=== PATIENT | female | born 1935 | race Caucasian/White ===

== ENCOUNTER 2019-01-23 16:21 | Emergency (ER) | payer MEDICARE, BC ==
[2019-01-23] MEDS ORDERED: OXYCODONE-ACETAMINOPHEN 5-325 MG TABLET PO ONE ×2 (17:31→20:57)
--- NOTE | 2019-01-23 17:31 | ER Document Report ---
ED Medical Screen (RME) - General Chief Complaint: Fall Stated Complaint: FALL Time Seen by Provider: 01/23/19 17:18 Primary Care Provider: TRINO TAMAYO MD [Primary Care Provider] - Follow up as needed Notes: Patient is a 83-year-old female that presents to the emergency department for chief complaint of right ankle pain and bilateral knee pain after a fall this morning. ROS: Other than noted above, the 12 point review of systems was reviewed with the patient and were negative, all pertinent findings are included in the HPI. PHYSICAL EXAMINATION: Vital signs reviewed. GENERAL: Elderly female, appears uncomfortable HEAD: Atraumatic, normocephalic. EYES: Pupils equal round extraocular movements intact, conjunctiva are normal. ENT: Nares patent NECK: Normal range of motion CV: Heart regular rate and rhythm LUNGS: No respiratory distress Musculoskeletal: Good range of motion of both knees, some tenderness to palpation along the joint lines, bilaterally, the right ankle appears to be petrona matous, and tender to palpate medially and laterally. NEUROLOGICAL: Normal speech PSYCH: Normal mood, normal affect. MDM: Patient seen and examined for rapid initial assessment. Vital signs reviewed. A comprehensive ED assessment and evaluation of the patient, analysis of test results and completion of the medical decision making process will be conducted by additional ED providers. *Note is created using voice recognition software and may contain spelling, syntax or grammatical errors. TRAVEL OUTSIDE OF THE [place] IN LAST 30 DAYS: No - Related Data Allergies/Adverse Reactions: No Known Allergies Allergy (Verified 01/23/19 17:24) Past Medical History - Social History Chew tobacco use (# tins/day): No Frequency of alcohol use: None Drug Abuse: None Pulmonary Medical History: Reports: Hx COPD Renal/ Medical History: Denies: Hx Peritoneal Dialysis Past Surgical History: Reports: Hx Section, Hx Orthopedic Surgery - femur repair Physical Exam - Vital signs Vitals: Temp Pulse Resp BP Pulse Ox 98.1 F 80 20 176/94 H 94 01/23/19 16:34 01/23/19 16:34 01/23/19 16:34 01/23/19 16:34 01/23/19 16:34 Course - Vital Signs Vital signs: Temp Pulse Resp BP Pulse Ox 98.1 F 80 20 176/94 H 94 01/23/19 16:34 01/23/19 16:34 01/23/19 16:34 01/23/19 16:34 01/23/19 16:34 Doctor's Discharge - Discharge Referrals: TRINO TAMAYO MD [Primary Care Provider] - Follow up as needed
--- NOTE | 2019-01-23 18:25 | RADIOLOGY REPORT (SQ) ---
EXAM DESCRIPTION: ANKLE RIGHT COMPLETE COMPLETED DATE/TIME: 01/23/2019 6:12 pm REASON FOR STUDY: right ankle pain , fall COMPARISON: None. NUMBER OF VIEWS: Three views. TECHNIQUE: AP, lateral, and oblique radiographic images acquired of the right ankle. LIMITATIONS: None. FINDINGS: MINERALIZATION: Normal. BONES: No acute fracture or dislocation. No worrisome bone lesions. JOINTS: Possible effusion. SOFT TISSUES: Mild soft tissue swelling. No foreign body. OTHER: No other significant finding. IMPRESSION: MILD SOFT TISSUE SWELLING. POSSIBLE JOINT EFFUSION. NO ACUTE BONY FINDINGS. TECHNICAL DOCUMENTATION: JOB ID: [id number] [employer]- All Rights Reserved Reading location - IP/workstation name: [email or web address]
--- NOTE | 2019-01-23 18:26 | RADIOLOGY REPORT (SQ) ---
EXAM DESCRIPTION: KNEE LEFT 3 VIEWS COMPLETED DATE/TIME: 01/23/2019 6:12 pm REASON FOR STUDY: left knee pain, fall COMPARISON: None. NUMBER OF VIEWS: Three views. TECHNIQUE: AP, lateral, and sunrise patella radiographic images acquired of the left knee. LIMITATIONS: None. FINDINGS: MINERALIZATION: Normal. BONES: No acute fracture or dislocation. No worrisome bone lesions. Hardware in the femur. JOINT: Small suprapatellar effusion. SOFT TISSUES: No soft tissue swelling. No radio-opaque foreign body. OTHER: No other significant finding. IMPRESSION: SMALL JOINT EFFUSION. NO ACUTE BONY FINDINGS. TECHNICAL DOCUMENTATION: JOB ID: [id number] [employer]- All Rights Reserved Reading location - IP/workstation name: [email or web address]
--- NOTE | 2019-01-23 18:26 | RADIOLOGY REPORT (SQ) ---
EXAM DESCRIPTION: KNEE RIGHT 3 VIEWS COMPLETED DATE/TIME: 01/23/2019 6:12 pm REASON FOR STUDY: right knee pain, injury COMPARISON: None. NUMBER OF VIEWS: Three views. TECHNIQUE: AP, lateral, and sunrise patella radiographic images acquired of the right knee. LIMITATIONS: None. FINDINGS: MINERALIZATION: Normal. BONES: No acute fracture or dislocation. No worrisome bone lesions. JOINT: No effusion. SOFT TISSUES: No soft tissue swelling. No radio-opaque foreign body. OTHER: No other significant finding. IMPRESSION: NEGATIVE STUDY OF THE RIGHT KNEE. NO RADIOGRAPHIC EVIDENCE OF ACUTE INJURY. TECHNICAL DOCUMENTATION: JOB ID: [id number] [employer]- All Rights Reserved Reading location - IP/workstation name: [email or web address]
--- NOTE | 2019-01-23 20:37 | ER Document Report ---
ED Fall - General Chief Complaint: Fall Stated Complaint: FALL Time Seen by Provider: 01/23/19 17:18 Primary Care Provider: JUICE AGUAYO MD [ACTIVE STAFF] - Follow up in 3-5 days Notes: Patient is an 83-year-old female that comes to the emergency department for chief complaint of fall. She states she tripped over her flip-flops, fell forward, landed on her knees. Denies hand, wrist, arm, head, chest, back, abdominal injury. She denies focal numbness or weakness. She has a bruise over her left knee, pain and swelling to her right ankle, some tenderness over the right knee. She states that she was she was getting up and walking, however the pain worsened and she was having difficulty walking, therefore she came in by ambulance. She takes tramadol as needed for pain, has a history of a fractured left femur with ORIF. She was given Percocet in triage, states she used to take this after her femur fracture, states it helped a lot. She does have a small bleeding area underneath her right great toe, her tetanus is up-to-date, denies diabetes or blood thinner, denies current bleeding. Denies any other complaints. TRAVEL OUTSIDE OF THE [place] IN LAST 30 DAYS: No - Related data Allergies/Adverse Reactions: No Known Allergies Allergy (Verified 01/23/19 17:24) Past Medical History - General Information source: Patient - Social History Smoking Status: Current Every Day Smoker Chew tobacco use (# tins/day): No Frequency of alcohol use: None Drug Abuse: None Lives with: Family Family History: Reviewed & Not Pertinent Patient has suicidal ideation: No Patient has homicidal ideation: No Pulmonary Medical History: Reports: Hx COPD Renal/ Medical History: Denies: Hx Peritoneal Dialysis Past Surgical History: Reports: Hx Section, Hx Orthopedic Surgery - femur repair Review of Systems - Review of Systems Constitutional: No symptoms reported EENT: No symptoms reported Cardiovascular: No symptoms reported Respiratory: No symptoms reported Gastrointestinal: No symptoms reported Genitourinary: No symptoms reported Female Genitourinary: No symptoms reported Musculoskeletal: See HPI Skin: No symptoms reported Hematologic/Lymphatic: No symptoms reported Neurological/Psychological: No symptoms reported Physical Exam - Vital signs Vitals: Temp Pulse Resp BP Pulse Ox 98.1 F 80 20 176/94 H 94 01/23/19 16:34 01/23/19 16:34 01/23/19 16:34 01/23/19 16:34 01/23/19 16:34 - Notes Notes: GENERAL: Alert, interacts well. No acute distress. HEAD: Normocephalic, atraumatic. EYES: Pupils equal, round, and reactive to light. Extraocular movements intact. ENT: Oral mucosa moist, tongue midline. Oropharynx unremarkable. Airway patent. Nares patent, no nasal septal hematoma, TM's intact. NECK: Full range of motion. Supple. Trachea midline. LUNGS: Clear to auscultation bilaterally, no wheezes, rales, or rhonchi. No respiratory distress. HEART: Regular rate and rhythm. No murmur ABDOMEN: Soft, non-tender. Non-distended. Bowel sounds present in all 4 quadrants. GENITOURINARY: Deferred EXTREMITIES: Contusion over the left knee, questionable mild soft tissue swelling of the left knee, right knee is unremarkable. Normal range of motion of both. Normal hip exams. Right ankle with some tenderness over the anterior aspect of the foot and over the right lateral malleolus. Otherwise unremarkable. Normal distal neurovascular exam. BACK: no cervical, thoracic, lumbar midline tenderness. No saddle anesthesia, normal distal neurovascular exam. NEUROLOGICAL: Alert and oriented x3. Normal speech. [cranial nerves II through XII grossly intact]. PSYCH: Normal affect, normal mood. SKIN: Small skin tear underneath right great toe, otherwise unremarkable Course - Re-evaluation Re-evalutation: Patient with contusion to the left knee, some pain, however range of motion is intact, no severe swelling, patient can place weight on it but with some pain. She also has some evidence of soft tissue swelling of the right ankle. Effusions in both. Right knee unremarkable. No fractures on x-rays. No concerning findings on exam. There is a small skin tear on the right toe but no significant wounds. Area was cleaned and dressed. Discussed with patient. She states she is comfortable going home, she has a walker, she states she needs pain medication in order to be able to walk but she was provided with this and was doing quite well. Discussed use, precautions, follow-up, and return precautions with patient and significant other at bedside in detail. They state understanding and agreement with plan. Stable at time of discharge. - Vital Signs Vital signs: Temp Pulse Resp BP Pulse Ox 98.2 F 81 17 164/95 H 97 01/23/19 21:05 01/23/19 21:05 01/23/19 21:05 01/23/19 21:05 01/23/19 21:05 Procedures - Immobilization right ankle Pre-Proc Neuro Vasc Exam: Normal Immobilizer type: Rafat wrap, Ankle stirrup Performed by: PCT Post-Proc Neuro Vasc Exam: Normal Alignment checked and good: Yes Discharge - Discharge Clinical Impression: Right ankle swelling, Skin tear Accidental fall Qualifiers: Encounter type: initial encounter Qualified Code(s): W19.XXXA - Unspecified fall, initial encounter Contusion of left knee Qualifiers: Encounter type: initial encounter Qualified Code(s): S80.02XA - Contusion of left knee, initial encounter Condition: Stable Disposition: HOME, SELF-CARE Additional Instructions: The x-rays do not show fracture. There is an effusion proxies fluid) in the joint of the left knee in the right ankle. I recommend that you use the ankle stair, use the walker, apply ice to your ankle and knees 3-4 times a day for 10- 15 minutes, and rest. Symptoms should improve with time. Follow-up with orthopedics. Keep the skin tear clean, clean with soap and water, apply topical antibiotic and dressing. Take the pain medication as prescribed if needed, if you do also take a stool softener. Do not combine with Ultram. Return if you worsen including falling again, severe pain or swelling, or any other concerning symptoms. Prescriptions: Docusate Sodium [Colace 100 mg Capsule] 100 mg PO ASDIR PRN #30 capsule PRN Reason: Oxycodone HCl/Acetaminophen [Percocet 5-325 mg Tablet] 1 tab PO Q4H PRN #15 tablet PRN Reason: Referrals: JUICE AGUAYO MD [ACTIVE STAFF] - Follow up in 3-5 days
[2019-01-23 21:06] VITALS: BP 164/95
== END 2019-01-23 21:06 | disposition home or self-care (01) ==
LOC: ER 16:21
DX: S80.02XA Contusion of left knee, initial encounter (principal); S91.111A Laceration without foreign body of right great toe without damage to nail, initial encounter; M25.571 Pain in right ankle and joints of right foot; M79.89 Other specified soft tissue disorders; W01.0XXA Fall on same level from slipping, tripping and stumbling without subsequent striking against object, initial encounter; F17.200 Nicotine dependence, unspecified, uncomplicated; J44.9 Chronic obstructive pulmonary disease, unspecified
CPT/HCPCS: 99283; 73610; 73562 ×2; L4350; A9270